=== PATIENT | female | born 1975 | race American Indian/Alaskan Native ===

== ENCOUNTER 2020-07-14 11:00 | Outpatient (CLI) | payer BC | END 2020-07-15 11:00 | disposition home or self-care (01) | LOC: SLR 11:00 | PROVIDERS: ATTEND Surgery | DX: G47.00 Insomnia, unspecified (principal) | CPT/HCPCS: 95810 ==

== ENCOUNTER 2021-03-07 08:25 | Outpatient (CLI) | payer BC ==
--- NOTE | 2021-03-07 12:52 | Fluoroscopy Report ---
UPPER GI Indication: Dyspepsia.. Technique: Single and double contrast barium technique utilized to evaluate the esophagus and stoma ch. Technique: Initial long line teamster radiograph was performed. Small sample of thin barium was swallowed. Rapid s equence fluoroscopic evaluation the cervical esophagus was performed in the LPO positioning. Patient was placed in the LPO positioning and double contrast fluoroscopic evaluation of the esophagus was pe rformed. The patient was then rotated in the supine position to coat the stomach with contrast materi al. Additional images of the stomach were then obtained in the supine and upright position. Findings: Initial long line teamster radiograph of abdomen demonstrates right upper quadrant cholecystectomy clips. No diste nded loops of intestines. Swallowing was normal. No evidence of aspiration. No mucosal irregularity, mass, mass effect, or critical stenosis. There were no abnormal tertiary c ontractions as seen with dysmotility. Mild gastroesophageal reflux was noted spontaneously to the lev el of the distal third of the esophagus. No hiatal hernia. Impression: Mild spontaneous gastroesophageal reflux to the level of the distal third of the esophagus. Otherwise , unremarkable upper GI fluoroscopic study. Fluoroscopic time: 1.9 minutes Number of fluoroscopic images: 37 Signer Name: Felice Rahman MD Signed: 03/07/2021 12:47 PM Workstation Name: [id number]
== END 2021-03-07 08:26 | disposition home or self-care (01) ==
LOC: FLUORO 08:25
PROVIDERS: ATTEND Surgery
DX: K21.9 Gastro-esophageal reflux disease without esophagitis (principal)
CPT/HCPCS: 74246

== ENCOUNTER 2021-03-29 07:31 | Outpatient (CLI) | payer BC ==
--- NOTE | 2021-03-29 18:03 | Treadmill Report ---
DATE OF SERVICE: 03/29/2021 TREADMILL STRESS TEST REFERRING PHYSICIAN: Dr. Sumanth Snow. INDICATION: Preoperative evaluation. DESCRIPTION OF PROCEDURE: The patient was brought to the stress lab in postabsorptive state, exercised under standard Beto protocol treadmill, exercised for a total of 8 minutes on a standard Beto protocol. No chest pain or shortness of breath. A 2-[address] segment depression inferolaterally. No chest pain or arrhythmias. These changes resolved within the second minute of recovery. This is an equivocal stress test. No complications. CONCLUSIONS: 1. Equivocal exercise stress test. 2. No chest pain or arrhythmia during stress or recovery. Recommend stress test with nuclear perfusion imaging given the equivocal result here. Consider echocardiography prior to surgery as well. TID: [id number] RECEIPT: [id number] MARIE/MARK/BELKYS
--- NOTE | 2021-03-30 10:40 | Electrocardiograph Report ---
[facility] Test Date: 2021-03-29 Test Time: 10:26:02 Pat Name: FILI SOUSA Department: Room: Gender: F Fur Grader: TIFFANY : 1975 Requested By: VERA SIMMS Order Number: [id number] Reading MD: Micah Aviles Measurements Intervals Fields Rate: 64 P: 46 IN: 209 QRS: -22 QRSD: 98 T: 15 QT: 419 QTc: 431 Interpretive Statements Sinus rhythm Borderline prolonged IN interval Low voltage, precordial leads No previous ECG available for comparison Electronically Signed On 03-30-2021 10:40:41 EST by Micah Aviles
--- NOTE | 2021-03-30 10:41 | Treadmill Report ---
[facility] Test Date: 2021-03-29 Test Time: 11:08:00 Pat Name: FILI SOUSA Department: CARDIOLOGY Room: STRESS LAB 1 Gender: F [place] Headgate Operator: Lesia Luevano : 1975 Requested By: VERA SIMMS Order Number: [id number] Reading MD: Micah Aviles Interpretive Statements Electronically Signed On 03-30-2021 10:41:09 EST by Micah Aviles
== END 2021-03-29 07:32 | disposition home or self-care (01) ==
LOC: PF 07:31
PROVIDERS: ATTEND Surgery
DX: E66.01 Morbid (severe) obesity due to excess calories (principal)
CPT/HCPCS: 93005; 93017; 94010